=== PATIENT | male | born 1980 | race Caucasian/White ===

== ENCOUNTER → 2025-02-05 | Outpatient (CLI) | payer BC, SELFPAY ==
[2025-02-05 12:33] LABS: Microalbumin,Random Urine 157.0 mg/L (<20 mg/L)
[2025-02-05 12:37] LABS: Hematocrit 46.6 % (40-54); Hemoglobin 16.9 g/dL (13.0-16.5); Immature Granulocytes Count 0.010 X10^3/uL (0.0-0.0); Mean Corp Hgb Conc 36.3 g/dL (32-36); Mean Corpuscular Volume 86.0 fL (80-94); Mean Platelet Vol. 10.7 fl (6.2-12.0); NRBC Flagged by Analyzer 0 % (0-5); Platelet Count 248 K/mm3 (150-450); RBC Distribution Width CV 13.2 % (11.6-14.6); RBC Distribution Width SD 41.2 fl (35.1-43.9); Red Blood Count 5.42 M/mm3 (4.6-6.2); White Blood Count 5.7 K/mm3 (4.4-11.0)
[2025-02-05 13:12] LABS: AST(SGOT) 54 U/L (<=37); Alanine Aminotransfer ALT/SGPT 58 U/L (<=46); Albumin, Serum 4.2 g/dL (3.5-5.0); Alkaline Phosphatase 81 U/L (40-129); Anion Gap 14 (5-15); BUN 14 mg/dL (4-19); BUN/Creat Ratio 42.9 RATIO (10-20); Calcium,Total 9.6 mg/dL (7.6-11.0); Carbon Dioxide 20.3 mmol/L (21.0-32.0); Chloride 93 mmol/L (98-108); Cholesterol 828 mg/dL (<=200); Globulin 2.8 g/dL (2.2-4.2); Glucose 281 mg/dL (70-99); Low Density Lipoprotein Calc. UNABLE TO CALCULATE mg/dL; Potassium 4.3 mmol/L (3.3-5.1); Triglycerides > 4425 mg/dL; Vitamin B12 371 pg/mL (180-914); Vitamin D,25 Hydroxy 15.3 ng/mL (30-100); cholesterol:hdl ratio screen 68.43
== END | disposition home or self-care (01) ==
PROVIDERS: PCP Nurse Practitioner Family; Referring Provider Nurse Practitioner Family; Visit Provider Nurse Practitioner Family
DX: E11.9 Type 2 diabetes mellitus without complications (principal)
CPT/HCPCS: 36415; 80053; 80061; 82043; 82306; 82607; 84443; 85025

== ENCOUNTER → 2025-03-19 | Outpatient (CLI) | payer BC, SELFPAY ==
[2025-03-19 12:55] LABS: Amylase 110 U/L (28-100); Lipase 154 U/L (13-75)
[2025-03-25 09:08] LABS: Testosterone, % Free 3.15 % (1.50-4.20); Testosterone, Free 6.43 ng/dL (5.00-21.00)
== END | disposition home or self-care (01) ==
LOC: VSLAB 11:06
PROVIDERS: PCP Nurse Practitioner Family; Referring Provider Nurse Practitioner Family; Visit Provider Nurse Practitioner Family
DX: K76.9 Liver disease, unspecified (principal); I10 Essential (primary) hypertension
CPT/HCPCS: 36415; 82150; 83690; 84402; 84403

== ENCOUNTER → 2025-04-15 | Outpatient (CLI) | payer BC, SELFPAY | END | disposition home or self-care (01) | LOC: SL 13:33 | PROVIDERS: PCP Nurse Practitioner Family; Referring Provider Nurse Practitioner Family; Visit Provider Nurse Practitioner Family | DX: G47.10 Hypersomnia, unspecified (principal) | CPT/HCPCS: 95806 ==